=== PATIENT | male | born 1985 ===

== ENCOUNTER 2021-03-29 16:03 | Emergency (ER) | payer SELFPAY ==
[2021-03-29 16:20] VITALS: BP 127/80
--- NOTE | 2021-03-29 16:26 | Emergency Department Report ---
ED General Adult HPI - General Chief complaint: Weakness Stated complaint: MEDICAL SCREENING Time Seen by Provider: 03/29/21 16:22 Source: patient Mode of arrival: Ambulatory Limitations: No Limitations - History of Present Illness Initial comments: Patient presents because his hands are red and swollen. He actually came in because he was found shooting up drugs in a bathroom at [employer]. Police were called. Police offered residential versus the hospital. The patient elected the hospital and EMS was called. Patient states that his hands are red and swollen. Right is worse than left. Is been going on for months. He does not know what is causing it. He was not shooting up in his hands. 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 He was placed on some topical medicines which greatly improved his symptoms. That was years ago. He has had a recurrence of this recently. He has no chest pain or shortness of breath. Is no fevers or chills but is no cough or congestion. Has no vomit or diarrhea. He does report that he is still upset because his brother just from endocarditis related to IV drug abuse. - Related Data Previous Rx's Medication Instructions Recorded Last Taken Type Doxycycline Monohydrate 100 mg PO BID #20 tab 03/29/21 Unknown Rx Mupirocin [Bactroban 2%] 1 applic TP HS #1 tube 03/29/21 Unknown Rx ED Review of Systems ROS: Stated complaint: MEDICAL SCREENING Other details as noted in HPI Comment: All other systems reviewed and negative Constitutional: denies: fever Eyes: denies: eye pain ENT: denies: throat pain Respiratory: denies: cough Cardiovascular: denies: chest pain Endocrine: denies: unexplained weight loss Gastrointestinal: denies: abdominal pain Genitourinary: denies: dysuria Musculoskeletal: denies: back pain Skin: as per HPI Neurological: denies: headache Hematological/Lymphatic: denies: easy bruising ED Past Medical Hx - Past Medical History Previous Medical History?: No Additional medical history: IV drug abuse - Surgical History Past Surgical History?: No - Family History Family history: other (IV drug abuse) - Medications Home Medications: Home Medications Medication Instructions Recorded Confirmed Last Taken Type Doxycycline Monohydrate 100 mg PO BID #20 tab 03/29/21 Unknown Rx Mupirocin [Bactroban 2%] 1 applic TP HS #1 tube 03/29/21 Unknown Rx ED Physical Exam - General Limitations: No Limitations, Other (Pulse ox noted and normal) General appearance: alert, in no apparent distress - Head Head exam: Present: atraumatic, normocephalic - Eye Eye exam: Present: normal appearance, EOMI - ENT ENT exam: Present: normal orophraynx, normal external ear exam - Neck Neck exam: Present: normal inspection. Absent: meningismus - Respiratory Respiratory exam: Present: normal lung sounds bilaterally. Absent: respiratory distress - Cardiovascular Cardiovascular Exam: Present: normal rhythm, tachycardia - GI/Abdominal GI/Abdominal exam: Present: soft - Extremities Exam Extremities exam: Present: normal capillary refill, other (Patient has multiple superficial abrasions to the dorsum of both hands with diffuse erythema. Patient keeps picking at his hands and stating that they are things coming out when he squeezes these pustules. There are no visible pustules at this time.) - Back Exam Back exam: Absent: CVA tenderness (R), CVA tenderness (L) - Neurological Exam Neurological exam: Present: alert, oriented X3, CN II-XII intact, normal gait. Absent: motor sensory deficit - Psychiatric Psychiatric exam: Present: depressed (Tearful) - Skin Skin exam: Present: warm, dry ED Course Vital Signs 03/29/21 16:17 Temperature 98.2 F Pulse Rate 130 H Respiratory 16 Rate Blood Pressure 127/80 [Left] O2 Sat by Pulse 96 Oximetry - Reevaluation(s) Reevaluation #1: 03/29/21 17:17 Patient was discharged ED Medical Decision Making - Medical Decision Making Patient presents with hand erythema and multiple abrasions. I suspect that this is likely formication related to his drug abuse, but he does seem to have some degree of cellulitis involving both hands. He was placed on antibiotics. He is tachycardic, but was crying and upset about his brother's . When the patient is calm, his heart rate was 100. I do not believe this requires medical evaluation. There was no murmur. Critical Care Time: No Critical care attestation.: If time is entered above; I have spent that time in minutes in the direct care of this critically ill patient, excluding procedure time. ED Disposition Clinical Impression: Situational depression Hand abrasion, infected Qualifiers: Encounter type: initial encounter Laterality: left Qualified Code(s): S60.512A - Abrasion of left hand, initial encounter Disposition: HOME / SELF CARE / HOMELESS Is pt being admited?: No Condition: Stable Instructions: Abrasion, Wound Care, Adult, Complicated Grief Additional Instructions: Keep the abrasions clean. Return for problems. Follow-up with your regular doctor or the on-call physician for recheck. Seek help for your IV drug abuse. Prescriptions: Mupirocin [Bactroban 2%] 1 applic TP HS #1 tube Doxycycline Monohydrate 100 mg PO BID #20 tab Referrals: PRIMARY CAREMD [Primary Care Provider] - 3-5 Days NOHELIA BETANCOURT MD [Staff Physician] - 3-5 Days
== END 2021-03-29 17:37 | disposition home or self-care (01) ==
LOC: ED 16:03
DX: F43.21 Adjustment disorder with depressed mood (principal); S60.512A Abrasion of left hand, initial encounter; X58.XXXA Exposure to other specified factors, initial encounter; Y93.89 Activity, other specified; Y92.89 Other specified places as the place of occurrence of the external cause; Y99.8 Other external cause status
CPT/HCPCS: 99282